=== PATIENT | female | born 1945 | race African-American/Black ===

== ENCOUNTER 2021-04-27 08:31 | Emergency (ER) | payer BC, OTHER ==
[~2021-04-27] VITALS: Ht 162.6 cm; Wt 80.0 kg
[2021-04-27] MEDS ORDERED: ONDANSETRON HCL 4MG/2ML INJ IV STA (08:41)
[2021-04-27] MEDS ORDERED: MECLIZINE 25MG TABLET PO ONE (08:45)
[2021-04-27] MEDS ORDERED: SODIUM CHLORIDE 0.9% 1,000 ML IV ONE (08:45)
[2021-04-27 10:49] LABS: BASOPHILS % 1.1 % (0.0-2.0); HEMATOCRIT. 38.4 % (36.0-48.0); HEMOGLOBIN. 13.3 g/dL (12.0-16.0); LYMPHOCYTES % 24.4 % (20.0-50.0); MEAN CORPUSCULAR HEMOGLOBIN 31.9 pg (28.0-32.0); MEAN CORPUSCULAR VOLUME 91.8 fL (81.0-99.0); MEAN PLATELET VOLUME 7.2 fl (7.4-10.4); MONOCYTES % 9.7 % (2.0-8.0); NEUTROPHILS % 61.8 % (40.0-76.0); PLATELET 274 x1000/uL (130-400); RED BLOOD CELL COUNT 4.18 mill/uL (4.2-5.4); RED CELL DISTRIBUTION WIDTH 13.3 % (11.6-14.6)
[2021-04-27 10:55] LABS: CHLORIDE 106 mEq/L (98-107)
[2021-04-27 12:19] VITALS: BP 121/64
== END 2021-04-27 12:41 | disposition home or self-care (01) ==
LOC: ER 08:31
DX: F07.81 Postconcussional syndrome (principal); E11.9 Type 2 diabetes mellitus without complications
CPT/HCPCS: 36415; 80053; 85025; 93005; 96374; 99284; J2405; J7030; J8597